=== PATIENT | female | born 1955 | race Two or more races ===

== ENCOUNTER → 2025-07-13 | Outpatient (CLI) | payer MEDICAID, SELFPAY ==
--- NOTE | 2025-07-13 15:25 | XR_ITS ---
Examination: Left knee 3 views TECHNIQUE: AP oblique lateral left knee 3 views Date and time: July 13, 2025, 1539 hours INDICATIONS: Left knee pain 2 weeks no trauma. FINDINGS: Moderate tricompartment osteoarthritis. No fracture. Small knee effusion IMPRESSION: Moderate tricompartment osteoarthritis
== END | disposition home or self-care (01) ==
PROVIDERS: PCP Physician Assistant Medical; Referring Provider Physician Assistant Medical; Visit Provider Physician Assistant Medical
DX: M17.12 Unilateral primary osteoarthritis, left knee (principal)
CPT/HCPCS: 73562